=== PATIENT | male | born 1950 | race Caucasian/White ===

== ENCOUNTER → 2016-07-13 | Outpatient (CLI) | payer BC ==
--- NOTE | 2016-07-13 16:02 | DI ---
MRI LUMBAR SPINE SCAN WITHOUT IV CONTRAST, 07/13/2016 12:39 PM: Clinical History: Degenerative lumbar spinal stenosis. Previous Exam: 11/17/2015. Technique: Sagittal and axial T2 weighted; sagittal T1 weighted and T2 STIR; and axial PD. The vertebral bodies are of normal height and size. There is increased signal intensity involving the inferior half of L2 and the superior half of L3, as well as the inferior half of L5 and the superior half of S1 consistent with edema. The magnitude of hyperintensity at L5-S1 has not changed, but ther e has been an increase in severity and volume of tissue associated with hyperintensity at the L2-3 le anna indicating there is more edema. This would suggest there is motion at the L2-3 disc space level. There is severe disc space narrowing at L1-2, L2-3, and L5-S1 with normal disc space heights at L3-4 and L4-5. All lumbar disc spaces show desiccation change. The cord terminates at T12 and the conus me dullaris is normal. The T10-11 through T12-L1 disc spaces are normal. L1-2 has a circumferentially bu lging but not herniated disc and this is causing severe spinal canal stenosis predominately in the AP dimension. There is no neural foraminal stenosis. There is hypertrophic change of the ligamentum fla vum but only mild hypertrophic change of the apophyseal joints. L2-3 has severe spinal canal stenosis secondary to a circumferentially bulging but not herniated disc as well as hypertrophic change of th e ligamentum flavum with only mild hypertrophic change of the apophyseal joints. There is no signific ant neural foraminal stenosis. L3-4 has a circumferentially bulging but not herniated disc with hyper trophic change of the ligamentum flavum and only mild degenerative change of the apophyseal joints. T he cross-sectional area of the canal is at the lower limits of normal. There is no neural foraminal s tenosis. L4-5 has a circumferentially bulging but not herniated disc with hypertrophic changes of the apophyseal joints and ligamentum flavum. The cross-sectional area of the canal is at the lower limit s of normal without significant neural foraminal stenosis. L5-S1 has a circumferentially bulging but not herniated disc without canal or neural foraminal stenosis. Readin. L1-2 and L2-3 have severe spinal canal stenosis secondary to bulging discs and hypertrophic back es of the ligamentum flavum with only minimal degenerative hypertrophic change of the apophyseal join ts. Both levels show no neural foraminal stenosis. 2. L3-4 and L4-5 have bulging but not herniated discs with hypertrophic change of the ligamentum fla vum and apophyseal joints but without spinal canal or neural foraminal stenosis. 3. The T10-11 through T12-L1, and L5-S1 disc spaces are normal.
== END ==
LOC: MRI 12:35
PROVIDERS: ATTEND Neurological Surgery
DX: M48.06 Spinal stenosis, lumbar region (principal); M47.816 Spondylosis without myelopathy or radiculopathy, lumbar region
CPT/HCPCS: 72148